=== PATIENT | male | born 1955 | race Caucasian/White ===

== ENCOUNTER 2021-04-24 14:56 | Emergency (ER) | payer OTHER, MEDICARE ==
[2021-04-24 18:39] LABS: HGB 15.7 g/dl (13.2-18.0); MCH 30.3 pg (25.0-31.0); MCHC 33.4 g/dL (32.0-36.0); MCV 90.6 fL (78.0-100.0); MPV 10.1 fL (6.0-9.5); RBC 5.19 M/uL (4.70-6.00); RDW 13.3 % (11.5-14.0); WBC 8.5 K/uL (4.0-10.5)
[2021-04-24 18:48] LABS: INR 1.07 (0.9-1.2); PROTHROMBIN TIME 13.3 SECONDS (11.8-13.4)
[2021-04-24 19:10] LABS: ALBUMIN 4.2 g/dL (3.4-5.0); BILIRUBIN - TOTAL 0.3 mg/dL (0.2-1.0); BUN/CREAT RATIO (CALC) 20.7 RATIO; CREATININE 0.87 mg/dL (0.67-1.17); POTASSIUM 4.4 mmol/L (3.5-5.1); TOTAL PROTEIN 8.2 g/dL (6.4-8.2)
[2021-04-24] MEDS ORDERED: NORCO 5-325 TA1 EACH PO (19:10)
[2021-04-24] MEDS ORDERED: MIRALAX17 GM PO (19:23)
== END 2021-04-24 19:51 | disposition home or self-care (01) ==
LOC: FER 14:56
PROVIDERS: Emergency Medicine
DX: K64.4 Residual hemorrhoidal skin tags (principal); I10 Essential (primary) hypertension
CPT/HCPCS: 36415; 80053; 85610; 99283